=== PATIENT | male | born 1960 | race Caucasian/White ===

== ENCOUNTER 2016-08-18 14:59 | Emergency (ER) | payer SELFPAY ==
[~2016-08-18] VITALS: Ht 182.9 cm; Wt 72.7 kg
[~2016-08-18 14:59] MED LIST: CEPH500T PO; NAPR40TA PO; PAXI10TA PO
[2016-08-18 15:00] VITALS: BP 166/84; PULSE 78; RESP 14; TEMP 97.5; O2SAT 98
[2016-08-18] MEDS ORDERED: SODIUM CHLORIDE 0.9% FLUSH 5 ML FLUSH IVF PRN (17:30)
[2016-08-18] MEDS ORDERED: oxyCODONE/ACETAMINOPHEN 5 MG/325 MG TAB PO ONE (17:30)
--- NOTE | 2016-08-18 18:16 | PD ---
HPI Chief Complaint: Skin Problem Time Seen by Provider: 17:23 Travel History International Travel<30 days: No Contact w/Intl Traveler<30days: No Traveled to known affect area: No History of Present Illness HPI Patient is a 55-year-old male presents emergency department for evaluation of right lower extremity chronic wound. Patient states she's had this wound for greater than 6 months was trying to follow-up with a wound care clinic today and was turned away due to lack of insurance. He went to an urgent care facility and was told they could not help him either referred to the emergency department. Patient states because him and squeezed pain. States he is chronically swollen his right lower extremity. He is not currently on any antibiotics denies any fever nausea vomiting diarrhea abdominal pain headache or other systemic symptoms. 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 There is a proximal silver dollar-sized area wound over the medial malleolus on his right lower extremity, minimal surrounding cellulitis. There is also some swelling in the right calf. There is granulation tissue in the wound. HEAD: Atraumatic. Normocephalic. EYES: Pupils equal and round. No scleral icterus. No injection or drainage. ENT: No nasal bleeding or discharge. Mucous membranes pink and moist. NECK: Trachea midline. No JVD. CARDIOVASCULAR: Regular rate and rhythm. No murmur appreciated. RESPIRATORY: No accessory muscle use. Clear to auscultation. Breath sounds equal bilaterally. GASTROINTESTINAL: Abdomen soft, non-tender, nondistended. Hepatic and splenic margins not palpable. MUSCULOSKELETAL: No obvious deformities. No clubbing. No cyanosis. No edema. NEUROLOGICAL: Awake and alert. No obvious cranial nerve deficits. Motor grossly within normal limits. Normal speech. PSYCHIATRIC: Appropriate mood and affect; insight and judgment normal. Data Data Last Documented VS Vital Signs Date Time Temp Pulse Resp B/P Pulse Ox O2 Delivery O2 Flow Rate FiO2 08/18/16 19:26 98.8 71 16 171/66 99 Room Air Orders Complete Blood Count With Diff (08/18/16 17:26) Comprehensive Metabolic Panel (08/18/16 17:26) Lipase (08/18/16 17:26) Iv Access Insert/Monitor (08/18/16 17:26) Ecg Monitoring (08/18/16 17:26) Oximetry (08/18/16 17:26) Sodium Chloride 0.9% Flush (Ns Flush) (08/18/16 17:30) Oxycodone-Acetamin 5-325 Mg (Percocet (08/18/16 17:30) Us Leg Venous Doppler (08/18/16 17:26) Consult Vascular Access Team (08/18/16 ) Vascular Poc Ultrasound (08/18/16 ) Labs Laboratory Tests Test 08/18/16 18:15 White Blood Count 8.7 TH/MM3 Red Blood Count 4.37 MIL/MM3 Hemoglobin 13.8 GM/DL Hematocrit 39.5 % Mean Corpuscular Volume 90.2 FL Mean Corpuscular Hemoglobin 31.6 PG Mean Corpuscular Hemoglobin 35.0 % Concent Red Cell Distribution Width 13.6 % Platelet Count 165 TH/MM3 Mean Platelet Volume 9.0 FL Neutrophils (%) (Auto) 50.6 % Lymphocytes (%) (Auto) 38.0 % Monocytes (%) (Auto) 8.7 % Eosinophils (%) (Auto) 1.7 % Basophils (%) (Auto) 1.0 % Neutrophils # (Auto) 4.4 TH/MM3 Lymphocytes # (Auto) 3.3 TH/MM3 Monocytes # (Auto) 0.8 TH/MM3 Eosinophils # (Auto) 0.1 TH/MM3 Basophils # (Auto) 0.1 TH/MM3 CBC Comment DIFF FINAL Differential Comment Sodium Level 141 MEQ/L Potassium Level 3.9 MEQ/L Chloride Level 109 MEQ/L Carbon Dioxide Level 27.0 MEQ/L Anion Gap 5 MEQ/L Blood Urea Nitrogen 10 MG/DL Creatinine 1.03 MG/DL Estimat Glomerular Filtration 76 ML/MIN Rate Random Glucose 77 MG/DL Calcium Level 8.7 MG/DL Total Bilirubin 0.4 MG/DL Aspartate Amino Transf 23 U/L (AST/SGOT) Alanine Aminotransferase 38 U/L (ALT/SGPT) Alkaline Phosphatase 70 U/L Total Protein 8.1 GM/DL Albumin 3.9 GM/DL Lipase 221 U/L MDM Medical Decision Making Medical Screen Exam Complete: Yes Emergency Medical Condition: Yes Differential Diagnosis Chronic wound, cellulitis, DVT, sepsis unlikely. Narrative Course Patient roomed in the emergency department, fairly unimpressive appearance of a wound to his right lower extremity however it is fair size. Does have good granulation tissue. Patient was given pain medicine, labs are reassuring. DVT ultrasound negative. He is stable for discharge. We'll place on antibiotics discussed with her need for follow-up the primary care physician as well as a presentation specialist. Discussed wound care including wet-to-dry dressings and return to ED criteria. Diagnosis Primary Impression: Cellulitis Qualified Code: L03.115 - Cellulitis of right lower extremity Additional Instructions: Follow-up the primary care physician, the health department, patient assistance or your presentation specialist. Med/Other Pt SpecificInfo: Prescription(s) given Scripts Sulfamethoxazole-Trimethoprim (Bactrim DS)800-160 Mg Tab2 Tab PO BID 7 Days Ref 0 Prov:Ruben Pradhan MD 08/18/16 Disposition: DISCHARGE HOME Condition: Stable Ruben Pradhan MD Aug 18, 2016 18:16
[2016-08-18 18:23] LABS: AUTOMATED NEUTROPHIL # 4.4 TH/MM3 (1.8-7.7); BASOPHIL # 0.1 TH/MM3 (0-0.2); EOSINOPHIL # 0.1 TH/MM3 (0-0.4); EOSINOPHIL % 1.7 % (0.0-4.0); HEMATOCRIT 39.5 % (39.0-51.0); HEMO FLAGS DIFF FINAL; LYMPHOCYTE # 3.3 TH/MM3 (1.0-4.8); MEAN CELL VOLUME 90.2 FL (80.0-100.0); MEAN CORPUSCULAR HEMOGLOBIN 31.6 PG (27.0-34.0); MONO % 8.7 % (0.0-8.0); NEUT % 50.6 % (16.0-70.0); PLATELET COUNT 165 TH/MM3 (150-450); RED BLOOD COUNT 4.37 MIL/MM3 (4.50-5.90); RED CELL DISTRIBUTION WIDTH 13.6 % (11.6-17.2); WHITE BLOOD COUNT 8.7 TH/MM3 (4.0-11.0)
[2016-08-18 18:48] LABS: ANION GAP 5 MEQ/L (5-15); AST (GOT) 23 U/L (15-37); BLOOD UREA NITROGEN 10 MG/DL (7-18); CHLORIDE 109 MEQ/L (98-107); GLOMERULAR FILTRATION RATE 76 ML/MIN (>89); POTASSIUM 3.9 MEQ/L (3.5-5.1); SODIUM (NA) 141 MEQ/L (136-145)
[2016-08-18 18:55] LABS: ALKALINE PHOSPHATASE 70 U/L (45-117); ALT (GPT) 38 U/L (12-78); TOTAL BILIRUBIN ADULT 0.4 MG/DL (0.2-1.0)
--- NOTE | 2016-08-18 19:16 | RADRPT ---
EXAM DATE/TIME: 08/18/2016 18:29 [facility] COMPARISON: No previous studies available for comparison. INDICATIONS : Right leg pain. MEDICAL HISTORY : Hypercholesterolemia. Depression. Hepatitis C. MRSA. SURGICAL HISTORY : Left arm surgery. Right arm surgery. ENCOUNTER: Initial ACUITY: 1 day PAIN SCORE: 8/10 LOCATION: Right leg. TECHNIQUE: Venous ultrasound of the leg was performed from the inguinal ligament to the proximal calf. Real-caleb e, color Doppler and spectral tracing, compression and augmentation techniques were used. FINDINGS: There is normal compressibility of the deep venous system from the inguinal region to the proximal ca lf. No echogenic clot is seen in the lumen of the common femoral, femoral, popliteal, and posterior tibial veins. There is a normal response of the venous system to proximal and distal augmentation an d respiration. CONCLUSION: No DVT of the right lower extremity. Bear Fletcher MD on August 18, 2016 at 19:15 Board Certified Radiologist. This report was verified electronically.
[2016-08-18 19:26] VITALS: BP 171/66; PULSE 71; RESP 16; TEMP 98.8; O2SAT 99
[2016-08-18] MEDS ORDERED: BACT800T5 PO (19:38)
== END 2016-08-18 20:08 | disposition home or self-care (01) ==
LOC: NEPA 14:59
DX: L03.115 Cellulitis of right lower limb (principal); M79.89 Other specified soft tissue disorders
CPT/HCPCS: 76937; 80053; 83690; 85025; 93971

== ENCOUNTER 2017-09-07 21:22 | Emergency (ER) | payer SELFPAY ==
[~2017-09-07 21:22] MED LIST changes: +BACT800T5 PO; -CEPH500T PO; -NAPR40TA PO; -PAXI10TA PO
[2017-09-07 22:06] VITALS: BP 149/77; PULSE 70; RESP 16; TEMP 97.8; O2SAT 98
--- NOTE | 2017-09-07 22:21 | PD ---
HPI Chief Complaint: Alcohol/Drug Intoxication Time Seen by Provider: 22:18 Travel History International Travel<30 days: No Contact w/Intl Traveler<30days: No Traveled to known affect area: No History of Present Illness HPI The patient is a 56-year-old male arrives to the ER via police escort. He was found intoxicated in public and was therefore brought to [place]. Here he has no complaint and reports drinking about 4 beers tonight. He denies drug abuse. Location generalized. Additional complaints include a laceration to the mentum of the chin. Bleeding resolved with pressure. PFSH Past Medical History Anxiety: Yes Depression: Yes High Cholesterol: Yes Diminished Hearing: No Hepatitis: Yes (HEP C) Social History Alcohol Use: Yes (OCC) Tobacco Use: Yes (2ppd) Substance Use: Yes (H/O) Allergies-Medications (Allergen,Severity, Reaction): Coded Allergies: *MDRO Multi-Drug Resistant Organism (Verified Adverse Reaction, Unknown, ) MRSA foot wound 08/2015 Reported Meds & Prescriptions Reported Meds & Active Scripts Active Bactrim DS (Sulfamethoxazole-Trimethoprim) 800-160 Mg Tab 2 Tab PO BID 7 Days Review of Systems Except as stated in HPI: all other systems reviewed are Neg General / Constitutional: No: Fever Eyes: No: Blurred Vision Physical Exam Narrative GENERAL: 56 male pleasant ambulatory in the ER SKIN: Warm and dry. There is one centimeter laceration just posterior to the mentum of the chin with minimal adjacent bleed. HEAD: Atraumatic. Normocephalic. EYES: Pupils equal and round. No scleral icterus. No injection or drainage. ENT: No nasal bleeding or discharge. Mucous membranes pink and moist. NECK: Trachea midline. No JVD. CARDIOVASCULAR: Regular rate and rhythm. RESPIRATORY: No accessory muscle use. Clear to auscultation. Breath sounds equal bilaterally. GASTROINTESTINAL: Abdomen soft, non-tender, nondistended. Hepatic and splenic margins not palpable. MUSCULOSKELETAL: Extremities without clubbing, cyanosis, or edema. No obvious deformities. NEUROLOGICAL: Awake and alert. No obvious cranial nerve deficits. Motor grossly within normal limits. Five out of 5 muscle strength in the arms and legs. Normal speech. PSYCHIATRIC: Appropriate mood and affect; insight and judgment normal. Data Data Last Documented VS Vital Signs Date Time Temp Pulse Resp B/P (MAP) Pulse Ox O2 Delivery O2 Flow Rate FiO2 09/07/17 22:06 97.8 70 16 149/77 (101) 98 MDM Medical Decision Making Medical Screen Exam Complete: Yes Emergency Medical Condition: Yes Medical Record Reviewed: Yes Differential Diagnosis alcohol intoxication, abrasion, laceration Narrative Course Patient is ambulatory here. During coughing. He has a ride home and place to go to. Laceration repair by PA. Patient's ready for discharge. Diagnosis Primary Impression: Alcohol intoxication Qualified Codes: F10.920 - Alcohol use, unspecified with intoxication, uncomplicated Additional Impression: Laceration of chin without complication Qualified Codes: S01.81XA - Laceration without foreign body of other part of head, initial encounter Med/Other Pt SpecificInfo: No Change to Meds Disposition: 01 DISCHARGE HOME Condition: Stable Wili Ramon MD Sep 07, 2017 22:21
--- NOTE | 2017-09-07 22:31 | PD ---
Physical Exam Date Seen by Provider: Sep 07, 2017 Time Seen by Provider: 22:30 Narrative For full history and physical examination please see previous providers note. I was asked to repair laceration to patient's chin. Data Data Last Documented VS Vital Signs Date Time Temp Pulse Resp B/P (MAP) Pulse Ox O2 Delivery O2 Flow Rate FiO2 09/07/17 22:06 97.8 70 16 149/77 (101) 98 Orders Orders Ed Discharge Order (09/07/17 22:21) [facility] Medical Record Reviewed: Yes Supervised Visit with MARK: Yes Procedures Procedure Narrative LACERATION LOCATION: chin LENGTH: 1cm NUMBER OF STITCHES/FREDIS: 2 stitches REPAIR: The area of the laceration was prepped with Betadine and sterilely draped. The laceration was infiltrated with 1% lidocaine. The wound was copiously irrigated and explored without evidence of foreign body, tendon injury or neurovascular injury. The wound was closed using 4-0 prolene. This was a 1 layer repair. A sterile dressing was applied. The patient was advised to keep the dressing clean and dry. Patient tolerated the procedure well. Diagnosis Primary Impression: Alcohol intoxication Qualified Codes: F10.920 - Alcohol use, unspecified with intoxication, uncomplicated Additional Impression: Laceration of chin without complication Qualified Codes: S01.81XA - Laceration without foreign body of other part of head, initial encounter Disposition: 01 DISCHARGE HOME Condition: Stable Claude,Bethany SELF Sep 07, 2017 22:31
== END 2017-09-07 22:40 | disposition home or self-care (01) ==
LOC: NEDAMB 21:22
DX: S01.81XA Laceration without foreign body of other part of head, initial encounter (principal); F10.920 Alcohol use, unspecified with intoxication, uncomplicated; E78.00 Pure hypercholesterolemia, unspecified; F17.200 Nicotine dependence, unspecified, uncomplicated; Z86.59 Personal history of other mental and behavioral disorders; Z86.19 Personal history of other infectious and parasitic diseases; X58.XXXA Exposure to other specified factors, initial encounter
CPT/HCPCS: 12011